=== PATIENT | female | born 1990 | race Caucasian/White ===

== ENCOUNTER 2019-10-10 06:53 | Emergency (ER) | payer OTHER ==
[~2019-10-10] VITALS: Ht 165.1 cm; Wt 72.6 kg
[~2019-10-10 06:53] MED LIST: DOXYCYCLINE 10100 MG PO; LOESTRIN 24 FE1 EACH PO; MEDROL DOSPAK21 TAB PO; SYNTHROID88 MCG PO; TRIAMCINOLONE A15 G1 TP
[2019-10-10 10:11] LABS: CALCIUM 8.7 mg/dL (8.5-10.1); CREATININE 0.7 mg/dL (0.6-1.0); POTASSIUM 3.7 mmol/L (3.5-5.1)
[2019-10-10 10:12] LABS: ABSOLUTE NEUTROPHILS 2.7 thou/uL (1.4-8.2); BASOPHILS 0.3 % (0.0-2.0); LYMPHOCYTES 34.8 % (24.0-44.0); MCH 31.5 pg (26.0-34.0); MCHC 35.2 g/dL (28.0-37.0); MCV 89.4 fL (80.0-100.0); MONOCYTES 7.4 % (1.0-8.0); PLATELET COUNT 189 thou/uL (150-400); POLYS 56.5 % (36.0-66.0); RBC 4.14 mil/uL (4.20-5.00); RDW 13.3 % (10.5-14.5); WBC 4.8 thou/uL (4.0-11.0)
[2019-10-10 10:17] LABS: ALBUMIN 3.9 g/dL (3.4-5.0); TOTAL BILIRUBIN 0.4 mg/dL (0.2-1.0); TOTAL PROTEIN 7.3 g/dL (6.4-8.2)
[2019-10-10] MEDS ORDERED: TRAMADOL 50 MG50 MG PO (11:34)
[2019-10-10] MEDS ORDERED: ONDANSETRON ODT8 MG PO (11:34)
[2019-10-10 11:40] VITALS: BP 107/75
[2019-10-11] MEDS ORDERED: PROMS25 WY RECTAL (18:36)
[2019-10-11] MEDS ORDERED: ATIVAN0.5 M1 PO (18:36)
== END 2019-10-10 11:45 | disposition home or self-care (01) ==
LOC: ER 06:53
PROVIDERS: Emergency Medicine
DX: U07.1 COVID-19 (principal); Z98.51 Tubal ligation status; Z90.49 Acquired absence of other specified parts of digestive tract; Z90.89 Acquired absence of other organs; Z79.899 Other long term (current) drug therapy; Z85.850 Personal history of malignant neoplasm of thyroid

== ENCOUNTER 2019-10-11 16:07 | Emergency (ER) | payer OTHER ==
[~2019-10-11] VITALS: Ht 165.1 cm; Wt 72.6 kg
[~2019-10-11 16:07] MED LIST changes: +ONDANSETRON ODT8 MG PO; +TRAMADOL 50 MG50 MG PO
[2019-10-11 17:16] LABS: ABSOLUTE NEUTROPHILS 4.5 thou/uL (1.4-8.2); BASOPHILS 0.3 % (0.0-2.0); EOSINOPHILS 0.4 % (0.0-3.0); HEMATOCRIT 39.1 % (37.0-47.0); MCH 31.6 pg (26.0-34.0); MCHC 35.8 g/dL (28.0-37.0); MCV 88.1 fL (80.0-100.0); MONOCYTES 5.3 % (1.0-8.0); PLATELET COUNT 222 thou/uL (150-400); RBC 4.44 mil/uL (4.20-5.00); RDW 13.3 % (10.5-14.5); WBC 6.7 thou/uL (4.0-11.0)
[2019-10-11 17:20] LABS: PO2 266.8 mmHg (80.0-100.0); sO2 99.8 % (92.0-98.0)
[2019-10-11 17:21] LABS: PCO2 17.2 mmHg (35.0-45.0); pH 7.725 (7.360-7.450)
[2019-10-11 17:26] LABS: ANION GAP 17 mmol/L (7-16); BUN 12 mg/dL (7-18); CALCIUM 8.9 mg/dL (8.5-10.1); CHLORIDE 101 mmol/L (98-107); CO2 20 mmol/L (21-32); CREATININE 1.1 mg/dL (0.6-1.0); GLUCOSE 91 mg/dL (74-106); POTASSIUM 3.2 mmol/L (3.5-5.1); SODIUM 138 mmol/L (136-145)
[2019-10-11 17:36] LABS: ALBUMIN 4.2 g/dL (3.4-5.0); MAGNESIUM 1.7 mg/dL (1.8-2.4); SGOT 91 U/L (15-37); SGPT 111 U/L (30-65); TOTAL BILIRUBIN 0.6 mg/dL (0.2-1.0); TOTAL PROTEIN 7.8 g/dL (6.4-8.2); TROPONIN-I <0.06 ng/mL (<0.06)
[2019-10-11] MEDS ORDERED: ATIVAN0.5 M1 PO (18:36)
[2019-10-11] MEDS ORDERED: PROMS25 WY RECTAL (18:36)
[2019-10-11 19:32] VITALS: BP 122/73
--- NOTE | 2019-10-12 10:58 | EKG ---
[facility] [place] [address] ELECTROCARDIOGRAM REPORT Name: MARY RODRÍGUEZ Room #: DEP 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: [facility] : 1990 Requested By: Rojelio Romero Order Number: [id number] MD: Robbi Chisholm Measurements Intervals [place] Rate: 85 P: 0 AR: 134 QRS: 4 QRSD: 94 T: 63 QT: 390 QTc: 464 Interpretive Statements Sinus rhythm RSR' in V1 or V2, right VCD No previous ECG available for comparison Electronically Signed On 10-12-2019 10:58:31 CDT by Robbi Chisholm [email or web address] <ELECTRONICALLY SIGNED> By: Robbi Chisholm MD, FAC 10/12/19 [id number] Robbi Chisholm MD, [facility] /EPI
== END 2019-10-11 19:39 | disposition home or self-care (01) ==
LOC: ER 16:07
PROVIDERS: Emergency Medicine
DX: U07.1 COVID-19 (principal); R11.2 Nausea with vomiting, unspecified; R19.7 Diarrhea, unspecified; E87.6 Hypokalemia; E83.42 Hypomagnesemia; R06.4 Hyperventilation; Z79.899 Other long term (current) drug therapy

== ENCOUNTER 2021-03-01 22:29 | Emergency (ER) | payer OTHER ==
[~2021-03-01] VITALS: Ht 165.1 cm; Wt 79.4 kg
[~2021-03-01 22:29] MED LIST changes: +ATIVAN0.5 M1 PO; +PROMS25 WY RECTAL
[2021-03-01 23:53] VITALS: BP 112/78
== END 2021-03-02 00:04 | disposition home or self-care (01) ==
LOC: ER 22:29
DX: M25.561 Pain in right knee (principal); F12.90 Cannabis use, unspecified, uncomplicated; Z86.16 Personal history of COVID-19; Z90.89 Acquired absence of other organs; Z90.49 Acquired absence of other specified parts of digestive tract; Z79.899 Other long term (current) drug therapy

== ENCOUNTER 2021-05-06 21:36 | Emergency (ER) | payer OTHER ==
[~2021-05-06] VITALS: Ht 175.3 cm; Wt 87.0 kg
[2021-05-06 22:08] LABS: ABSOLUTE NEUTROPHILS 4.6 thou/uL (1.4-8.2); BASOPHILS 0.5 % (0.0-2.0); HEMOGLOBIN 12.2 gm/dL (12.0-15.0); LYMPHOCYTES 24.7 % (24.0-44.0); MCH 29.4 pg (26.0-34.0); MCHC 34.8 g/dL (28.0-37.0); MCV 84.5 fL (80.0-100.0); MONOCYTES 6.5 % (1.0-8.0); PLATELET COUNT 221 thou/uL (150-400); POLYS 66.3 % (36.0-66.0); RBC 4.14 mil/uL (4.20-5.00); RDW 14.1 % (10.5-14.5)
[2021-05-06 22:16] LABS: CALCIUM 8.7 mg/dL (8.5-10.1); CREATININE 0.7 mg/dL (0.6-1.0); POTASSIUM 4.1 mmol/L (3.5-5.1)
[2021-05-06 22:22] LABS: ALBUMIN 3.9 g/dL (3.4-5.0); TOTAL BILIRUBIN 0.2 mg/dL (0.2-1.0); TOTAL PROTEIN 6.9 g/dL (6.4-8.2)
[2021-05-06] MEDS ORDERED: FLEXERIL PO (22:52)
[2021-05-06] MEDS ORDERED: IBU600 MG PO (22:52)
[2021-05-06 22:59] VITALS: BP 123/81
--- NOTE | 2021-05-07 07:50 | EKG ---
[place] [address] [place] [address] ELECTROCARDIOGRAM REPORT Name: MARY RODRÍGUEZ Room #: DEP [facility]#: [id number] Admission: 05/06/21 Attend Phys: Discharge: 05/06/21 Date of : [birth year] Report #: [id number] [facility] ED Test Date: 2021-05-06 Test Time: 21:50:38 Pat Name: MARY RODRÍGUEZ Department: Room: Gender: F Delivery Aide: SILVESTRE : 1990 Requested By: Laury Farley Order Number: [id number] MD: Lele Loza Measurements Intervals [place] Rate: 74 P: -11 VT: 165 QRS: 14 QRSD: 96 T: 48 QT: 386 QTc: 429 Interpretive Statements Sinus rhythm RSR' in V1 or V2, right VCD or RVH Compared to ECG 10/11/2019 17:27:44 Right ventricular hypertrophy now present Electronically Signed On 05-07-2021 7:50:06 DIRECTOR OF EDUCATION by Lele Loza [email or web address] <ELECTRONICALLY SIGNED> By: Lele Loza MD, [facility] 05/07/21 1290 [id number] 49 Lele Loza MD, FACC /EPI
== END 2021-05-06 23:07 | disposition home or self-care (01) ==
LOC: ER 21:36
PROVIDERS: Emergency Medicine
DX: R07.89 Other chest pain (principal); Z79.899 Other long term (current) drug therapy; Z90.49 Acquired absence of other specified parts of digestive tract; Z90.89 Acquired absence of other organs